=== PATIENT | male | born 1985 | race Caucasian/White ===

== ENCOUNTER 2017-05-10 10:13 | Emergency (ER) | payer MEDICAID ==
[~2017-05-10] VITALS: Ht 172.7 cm; Wt 72.6 kg
[2017-05-10 11:28] VITALS: BP 119/79
[2017-05-10] MEDS ORDERED: cefTRIAXone SOD 1,000 MG VL IM ONE (11:45)
[2017-05-10] MEDS ORDERED: KETOROLAC TROMETH 60MG/2ML VIAL IM ONE (11:45)
== END 2017-05-10 11:42 | disposition home or self-care (01) ==
LOC: ER 10:13
DX: L03.116 Cellulitis of left lower limb (principal); F17.210 Nicotine dependence, cigarettes, uncomplicated
CPT/HCPCS: 73562; 96372

== ENCOUNTER 2017-05-14 04:59 | Emergency (ER) | payer MEDICAID ==
[~2017-05-14] VITALS: Ht 170.2 cm; Wt 72.6 kg
[2017-05-14 05:52] LABS: Basophils # (auto) 0.1 uL; Basophils % (auto) 0.9 % (0.0-2.0); Eosinophils # (auto) 0.2 uL; Eosinophils % (auto) 2.3 % (0.0-7.0); Hematocrit 39.9 % (41.0-53.0); Hemoglobin 13.6 g/dL (13.5-17.5); Lymphocytes # (auto) 1.5 uL; Lymphocytes % (auto) 17.9 % (10.0-50.0); Mean Corpuscular Hemoglobin 31.3 pg (28.0-32.0); Mean Corpuscular Hgb Conc. 34.1 g/dL (32.0-36.0); Mean Corpuscular Volume 91.7 fL (80.0-100.0); Mean Platelet Volume 7.6 fL (6.9-10.8); Monocytes # (auto) 0.8 uL; Monocytes % (auto) 10.1 % (0.0-12.0); Neutrophils # (auto) 5.7 uL; Neutrophils % (auto) 68.8 % (37.0-80.0); Nucleated Red Blood Cells % 0.1 %; Platelet Count (auto) 387 10^3/uL (140-450); Red Cell Distribution Width 12.8 % (11.8-14.3); White Blood Cell 8.2 10^3/uL (4.4-10.8)
[2017-05-14 06:09] LABS: Albumin 3.2 g/dL (3.4-5.0); Calcium 8.6 mg/dL (8.5-10.1)
[2017-05-14 06:12] LABS: BUN/Creatinine Ratio 17.9; Bilirubin, Total 0.3 mg/dL (0.2-1.0); Total Protein 7.4 g/dL (6.4-8.2)
[2017-05-14] MEDS ORDERED: CLINDAMYCIN 900MG IV 50 ML IV ONE (06:30)
[2017-05-14] MEDS ORDERED: TETANUS-DIPTH-ACEL PERTUSSIS 0.5ML SYRG IM ONE (07:00)
[2017-05-14] MEDS ORDERED: KETOROLAC TROMETH 30 MG/ML 1ML VIAL IV ONE (07:15)
[2017-05-14 07:51] VITALS: BP 120/74
== END 2017-05-14 08:22 | disposition home or self-care (01) ==
LOC: ER 05:01
DX: L03.116 Cellulitis of left lower limb (principal); F12.10 Cannabis abuse, uncomplicated
CPT/HCPCS: 36415; 73700; 80053; 85025; 87040; 90471; 90715; 96365; 96366; 96375; 99285; J1885; J3490; J7030